=== PATIENT | female | born 1975 | race Caucasian/White ===

== ENCOUNTER 2018-04-19 20:38 | Emergency (ER) | payer OTHER ==
--- NOTE | 2018-04-19 21:25 | RADIOLOGY REPORT ---
EXAMINATION: XR KNEE, LEFT CLINICAL INFORMATION: Laceration status post fall COMPARISON: None TECHNIQUE: Four views of the left knee. FINDINGS: Bones have normal alignment. No acute fracture, subluxation or joint effusion. Minimal osteophyte formation of the patella. Otherwise, the joints are unremarkable. A few small metallic densities are seen in subcutaneous tissues of the proximal, lateral leg, but it is uncertain whether these are related to the recent trauma. Multiple small radiopaque foreign bodies are seen within soft tissues at site of laceration in the region of the patellar tendon. On the lateral view, the soft tissue laceration appears to extend through the patellar tendon; the apparent patellar tendon involvement may be confirmed on clinical inspection. IMPRESSION: A deep soft tissue laceration appears to extend through the patellar tendon on the lateral radiograph. However, recommend correlation with findings on physical examination.
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
[2018-04-19] MEDS ORDERED: DOXYCYCLINE HY100 M2 PO (22:33)
[2018-04-19 22:35] VITALS: BP 110/70
== END 2018-04-19 22:59 ==
LOC: ERH 20:38
DX: S81.012A Laceration without foreign body, left knee, initial encounter (principal); W19.XXXA Unspecified fall, initial encounter; Y92.9 Unspecified place or not applicable; Y93.9 Activity, unspecified
CPT/HCPCS: 73562-LT; J3101